=== PATIENT | female | born 1975 | race Two or more races ===

== ENCOUNTER 2020-03-28 22:40 | Emergency (ER) | payer OTHER ==
[~2020-03-28] VITALS: Ht 167.6 cm; Wt 136.1 kg
[2020-03-28 23:10] VITALS: BP 166/86
== END 2020-03-28 23:00 | disposition left against medical advice (07) ==
LOC: ER 22:40 → EDBD 22:40 → ER 23:00
DX: R42 Dizziness and giddiness (principal); Z53.21 Procedure and treatment not carried out due to patient leaving prior to being seen by health care provider